=== PATIENT | female | born 1935 | race Caucasian/White ===

== ENCOUNTER 2018-08-23 01:00 | Inpatient (IN) ==
[2018-08-23] MEDS ORDERED: DILTIAZEM 50 MG/10 ML VIAL IV STA (01:25)
[2018-08-23] MEDS ORDERED: dilTIAZem Drip 125 MG/125 ML PREMIX IV SCH (01:30)
[2018-08-23] MEDS ORDERED: SODIUM CHLORIDE 0.9% 500 ML IV STA ×2 (01:30→01:50)
[2018-08-23 01:46] LABS: Basophils % 0.6 % (0.0-0.8); Eosinophils # 0.3 10*3/uL (0.0-0.87); Eosinophils % 3.5 % (0.00-10.9); Hematocrit 37.5 VOL% (35.7-47.0); Hemoglobin 12.1 GM/DL (12.0-16.0); Immature Granulocytes % 0.3 %; Immature Granulocytes Absolute 0.02 #; Lymphocytes # 1.9 10*3/uL (1.4-4.0); Lymphocytes % 26.2 % (21.3-54.2); Mean Corpuscular HGB Conc 32.3 GM/DL (32-36); Mean Corpuscular Volume 97.7 FL (87-102); Mean Platelet Volume 10.3 FL (9.6-12.0); Monocytes % 12.2 % (1.7-12.7); Neutrophils % 57.2 % (38.7-73.9); Platelet Count 260 T/CUMM (130-400); Red Blood Count 3.84 MC/CUMM (3.8-5.5); White Blood Count 7.2 T/CUMM (4-12)
[2018-08-23 01:56] LABS: INR 0.9; PT Patient Result 10.1 SECS; Partial Thromboplastin Time 24.3 SECS (0-40)
[2018-08-23 02:30] LABS: Albumin 3.8 G/DL (3.4-5.0); Bilirubin,Total 0.4 MG/DL (0.2-1.0); Osmolality,Calculated 284.4 MOS/KG (273-304); Thyroid Stimulating Hormone 5.69 uIU/ml (0.358-3.74); Total Protein 7.7 G/DL (6.4-8.3)
[2018-08-23] MEDS ORDERED: ACETAMINOPHEN 325 MG TABLET PO PRN (04:09)
[2018-08-23] MEDS ORDERED: ONDANSETRON 4 MG/2 ML VIAL IV PRN (04:09)
[2018-08-23] MEDS ORDERED: NITROGLYCERIN SL 0.4 MG TABLET SL PRN (04:14)
[2018-08-23] MEDS ORDERED: ENOXAPARIN 40 MG/0.4 ML SYRINGE SUBCUT SCH (04:30)
[2018-08-23] MEDS ORDERED: ENOXAPARIN 60 MG/0.6 ML SYRINGE SUBCUT ONE (04:32)
[2018-08-23] MEDS: SODIUM CHLORIDE 0.45% 1,000 ML IV SCH ×2 (05:43→20:07)
[2018-08-23] MEDS ORDERED: DILTIAZEM 50 MG/10 ML VIAL IV ONE (06:42)
[2018-08-23] MEDS ORDERED: dilTIAZem Drip 125 MG/125 ML PREMIX IV ONE (06:48)
[2018-08-23] MEDS: dilTIAZem Drip 125 MG/125 ML PREMIX IV SCH (06:56)
[2018-08-23] MEDS: PANTOPRAZOLE 40 MG TABLET PO SCH (09:51)
[2018-08-23] MEDS: METOPROLOL TARTRATE 25 MG TABLET PO SCH ×2 (09:51→20:08)
[2018-08-23] MEDS: CALCIUM (CARBONATE) 600 MG TABLET PO SCH (09:51)
[2018-08-23] MEDS: ASPIRIN EC 81 MG TABLET PO SCH (09:51)
[2018-08-23] MEDS: MULTIVITAMIN (CENTRUM) TABLET PO SCH (09:52)
[2018-08-23] MEDS: LISINOPRIL 20 MG TABLET PO SCH (09:52)
[2018-08-23] MEDS: FOLIC ACID 1 MG TABLET PO SCH (09:52)
[2018-08-23] MEDS: VENLAFAXINE XR 75 MG CAPSULE PO SCH (09:52)
[2018-08-23] MEDS: PRASUGREL 10 MG TABLET PO SCH (09:52)
[2018-08-23] MEDS: ATORVASTATIN 40 MG TABLET PO SCH (20:08)
[2018-08-24] MEDS: FOLIC ACID 1 MG TABLET PO SCH (08:45)
[2018-08-24] MEDS: VENLAFAXINE XR 75 MG CAPSULE PO SCH (08:45)
[2018-08-24] MEDS: MULTIVITAMIN (CENTRUM) TABLET PO SCH (08:45)
[2018-08-24] MEDS: PRASUGREL 10 MG TABLET PO SCH (08:45)
[2018-08-24] MEDS: CALCIUM (CARBONATE) 600 MG TABLET PO SCH (08:45)
[2018-08-24] MEDS: ASPIRIN EC 81 MG TABLET PO SCH (08:45)
[2018-08-24] MEDS: LISINOPRIL 20 MG TABLET PO SCH (08:45)
[2018-08-24] MEDS: PANTOPRAZOLE 40 MG TABLET PO SCH (08:45)
[2018-08-24] MEDS: METOPROLOL TARTRATE 25 MG TABLET PO SCH ×2 (08:46→20:37)
[2018-08-24] MEDS: SODIUM CHLORIDE 0.45% 1,000 ML IV SCH (08:50)
[2018-08-24] MEDS: APIXABAN 5 MG TABLET PO SCH (20:37)
[2018-08-24] MEDS: ATORVASTATIN 40 MG TABLET PO SCH (20:38)
[2018-08-25] MEDS: SODIUM CHLORIDE 0.45% 1,000 ML IV SCH (00:26)
[2018-08-25 05:20] LABS: Basophils % 0.5 % (0.0-0.8); Eosinophils # 0.2 10*3/uL (0.0-0.87); Hematocrit 34.7 VOL% (35.7-47.0); Hemoglobin 11.4 GM/DL (12.0-16.0); Immature Granulocytes % 0.8 %; Immature Granulocytes Absolute 0.05 #; Lymphocytes # 1.7 10*3/uL (1.4-4.0); Lymphocytes % 28.3 % (21.3-54.2); Mean Corpuscular HGB Conc 32.9 GM/DL (32-36); Mean Corpuscular Volume 99.1 FL (87-102); Mean Platelet Volume 10.5 FL (9.6-12.0); Monocytes % 10.4 % (1.7-12.7); Platelet Count 227 T/CUMM (130-400); Red Cell Distribution Width 12.9 % (9.3-17.3)
[2018-08-25 06:11] LABS: Calcium 8.7 MG/DL (8.5-10.1); Free T4 (Free Thyroxine) 0.75 NG/DL (0.76-1.46); Osmolality,Calculated 289.1 MOS/KG (273-304); Thyroid Stimulating Hormone 5.05 uIU/ml (0.358-3.74)
[2018-08-25] MEDS: dilTIAZem Drip 125 MG/125 ML PREMIX IV SCH ×2 (06:27→09:29)
[2018-08-25] MEDS ORDERED: LEVOTHYROXINE 25 MCG TABLET PO SCH (06:30)
[2018-08-25] MEDS: LISINOPRIL 20 MG TABLET PO SCH (08:40)
[2018-08-25] MEDS: MULTIVITAMIN (CENTRUM) TABLET PO SCH (08:41)
[2018-08-25] MEDS: FOLIC ACID 1 MG TABLET PO SCH (08:41)
[2018-08-25] MEDS: METOPROLOL TARTRATE 25 MG TABLET PO SCH (08:41)
[2018-08-25] MEDS: APIXABAN 5 MG TABLET PO SCH (08:41)
[2018-08-25] MEDS: ASPIRIN EC 81 MG TABLET PO SCH (08:41)
[2018-08-25] MEDS: PANTOPRAZOLE 40 MG TABLET PO SCH (08:41)
[2018-08-25] MEDS: VENLAFAXINE XR 75 MG CAPSULE PO SCH (08:41)
[2018-08-25] MEDS: CALCIUM (CARBONATE) 600 MG TABLET PO SCH (08:41)
[2018-08-25 12:06] VITALS: BP 144/62
== END 2018-08-25 12:01 | disposition home or self-care (01) | DRG 310 ==
LOC: N.ED 01:00 → N.EDINP 04:09 → N.TELES 05:05
PROVIDERS: ADMIT Internal Medicine; ATTEND Internal Medicine

== ENCOUNTER 2018-12-23 04:54 | Inpatient (IN) ==
[2018-12-23 05:39] LABS: Basophils % 0.5 % (0.0-0.8); Eosinophils # 0.3 10*3/uL (0.0-0.87); Eosinophils % 4.7 % (0.00-10.9); Hematocrit 37.3 VOL% (35.7-47.0); Hemoglobin 12.5 GM/DL (12.0-16.0); Immature Granulocytes % 0.3 %; Immature Granulocytes Absolute 0.02 #; Lymphocytes # 1.6 10*3/uL (1.4-4.0); Lymphocytes % 26.8 % (21.3-54.2); Mean Corpuscular HGB Conc 33.5 GM/DL (32-36); Mean Corpuscular Volume 96.9 FL (87-102); Monocytes % 8.6 % (1.7-12.7); Neutrophils % 59.1 % (38.7-73.9); Platelet Count 208 T/CUMM (130-400); Red Blood Count 3.85 MC/CUMM (3.8-5.5); Red Cell Distribution Width 12.9 % (9.3-17.3); White Blood Count 5.9 T/CUMM (4-12)
[2018-12-23 05:55] LABS: Albumin 3.4 G/DL (3.4-5.0); Bilirubin,Total 0.6 MG/DL (0.2-1.0); Calcium 8.9 MG/DL (8.5-10.1); Osmolality,Calculated 279.7 MOS/KG (273-304); Total Protein 6.7 G/DL (6.4-8.3)
[2018-12-23] MEDS ORDERED: BISACODYL 5 MG TABLET PO PRN (08:16)
[2018-12-23] MEDS ORDERED: ZALEPLON 5 MG CAPSULE PO PRN (08:16)
[2018-12-23] MEDS ORDERED: DOCUSATE SODIUM 100 MG CAPSULE PO PRN (08:16)
[2018-12-23] MEDS ORDERED: ONDANSETRON 4 MG/2 ML VIAL IV PRN (08:16)
[2018-12-23] MEDS ORDERED: ACETAMINOPHEN 325 MG TABLET PO PRN (08:16)
[2018-12-23] MEDS ORDERED: diphenhydrAMINE CAP 25 MG CAPSULE PO PRN (08:16)
[2018-12-23] MEDS ORDERED: ALUM/MAG/SIMETH/LIDO VISC 1:1 30 ML BOTTLE PO STA ×2 (08:29→11:11)
[2018-12-23] MEDS: SODIUM CHLORIDE 0.9% 1,000 ML IV SCH ×2 (08:35→21:42)
[2018-12-23 08:44] LABS: Apearance,Urine CLEAR (Clear); Bacteria,Urine Occasional /HPF (Few); Bilirubin,Urine Negative (Negative); Blood, Urine Small mg/dL (Negative); Glucose,Urine (UA) Negative (Negative); Ketones,Urine Negative (Negative); Nitrite,Urine Negative (Negative); Protein,Urine Negative; RBC,Urine 4 /HPF (0-4); Squamous Epithelial Cell,Urine Occasional /HPF (0-10); Urine Color Straw (Yellow); Urine Specific Gravity 1.005 (1.001-1.035); Urine Urobilinogen < 2.0 EU/DL (0.2-1.0); WBC,Urine 10 /HPF (0-6)
[2018-12-23] MEDS: PANTOPRAZOLE 40 MG TABLET PO SCH (09:03)
[2018-12-23 09:32] LABS: Thyroid Stimulating Hormone 2.35 uIU/ml (0.358-3.74)
[2018-12-23] MEDS ORDERED: NON-FORMULARY MEDICATION (Dexlansoprazole [Dexilant] 60 MG) PO SCH (11:11)
[2018-12-23] MEDS ORDERED: NITROGLYCERIN SL 0.4 MG TABLET SL PRN (11:11)
[2018-12-23] MEDS: POTASSIUM CHLORIDE 10 MEQ TABLET PO SCH (12:03)
[2018-12-23] MEDS: APIXABAN 5 MG TABLET PO SCH ×2 (12:03→21:38)
[2018-12-23] MEDS: MULTIVITAMIN (CENTRUM) TABLET PO SCH (12:03)
[2018-12-23] MEDS: CALCIUM (CARBONATE) 600 MG TABLET PO SCH (12:03)
[2018-12-23] MEDS: METOPROLOL TARTRATE 25 MG TABLET PO SCH ×2 (12:03→21:38)
[2018-12-23] MEDS: ASPIRIN EC 81 MG TABLET PO SCH (12:03)
[2018-12-23] MEDS: VENLAFAXINE 75 MG TABLET PO SCH (12:03)
[2018-12-23] MEDS: FOLIC ACID 1 MG TABLET PO SCH (12:03)
[2018-12-23 13:36] LABS: Troponin I 0.083 NG/ML (0.00-0.045)
[2018-12-23] MEDS: AMIODARONE 200 MG TABLET PO SCH ×2 (15:01→21:38)
[2018-12-23] MEDS: DOXYCYCLINE HYCLATE INJ 100 MG in SODIUM CHLORIDE 0.9% 100 ML IV SCH (17:31)
[2018-12-23] MEDS ORDERED: ATORVASTATIN 40 MG TABLET PO SCH (21:00)
[2018-12-23] MEDS: ASCORBIC ACID 500 MG TABLET PO SCH (21:37)
[2018-12-24 06:03] LABS: Basophils % 0.5 % (0.0-0.8); Eosinophils # 0.2 10*3/uL (0.0-0.87); Hematocrit 35.4 VOL% (35.7-47.0); Hemoglobin 11.9 GM/DL (12.0-16.0); Immature Granulocytes % 0.3 %; Immature Granulocytes Absolute 0.02 #; Lymphocytes # 1.6 10*3/uL (1.4-4.0); Lymphocytes % 23.9 % (21.3-54.2); Mean Corpuscular HGB Conc 33.6 GM/DL (32-36); Mean Corpuscular Volume 98.3 FL (87-102); Mean Platelet Volume 11.2 FL (9.6-12.0); Monocytes % 8.3 % (1.7-12.7); Platelet Count 178 T/CUMM (130-400); White Blood Count 6.6 T/CUMM (4-12)
[2018-12-24] MEDS: DOXYCYCLINE HYCLATE INJ 100 MG in SODIUM CHLORIDE 0.9% 100 ML IV SCH (06:26)
[2018-12-24] MEDS ORDERED: LEVOTHYROXINE 25 MCG TABLET PO SCH (06:30)
[2018-12-24 06:36] LABS: Albumin 3.2 G/DL (3.4-5.0); Bilirubin,Total 0.7 MG/DL (0.2-1.0); Calcium 8.9 MG/DL (8.5-10.1); Total Protein 6.3 G/DL (6.4-8.3)
[2018-12-24 06:50] LABS: Risk Ratio 1.93; VLDL CHOLESTEROL 8.6 MG/DL
[2018-12-24] MEDS ORDERED: METOPROLOL TARTRATE 25 MG TABLET PO SCH (07:35)
[2018-12-24] MEDS ORDERED: CYANOCOBALAMIN 500 MCG TABLET PO SCH (09:00)
[2018-12-24] MEDS ORDERED: PYRIDOXINE 100 MG TABLET PO SCH (09:00)
[2018-12-24] MEDS: VENLAFAXINE 75 MG TABLET PO SCH (09:25)
[2018-12-24] MEDS: FOLIC ACID 1 MG TABLET PO SCH (09:25)
[2018-12-24] MEDS: CALCIUM (CARBONATE) 600 MG TABLET PO SCH (09:25)
[2018-12-24] MEDS: APIXABAN 5 MG TABLET PO SCH (09:26)
[2018-12-24] MEDS: MULTIVITAMIN (CENTRUM) TABLET PO SCH (09:26)
[2018-12-24] MEDS: PANTOPRAZOLE 40 MG TABLET PO SCH (09:26)
[2018-12-24] MEDS: ASPIRIN EC 81 MG TABLET PO SCH (09:26)
[2018-12-24] MEDS: POTASSIUM CHLORIDE 10 MEQ TABLET PO SCH (09:26)
[2018-12-24] MEDS: ASCORBIC ACID 500 MG TABLET PO SCH (09:26)
[2018-12-24] MEDS: AMIODARONE 200 MG TABLET PO SCH (10:08)
[2018-12-24] MEDS: SODIUM CHLORIDE 0.9% 1,000 ML IV SCH (12:10)
[2018-12-24 12:23] VITALS: BP 157/68
[2018-12-24] MEDS ORDERED: VANCOMYCIN INJ 1,000 MG in SODIUM CHLORIDE 0.9% 250 ML IV ONE (15:12)
== END 2018-12-24 14:39 | disposition home or self-care (01) | DRG 309 ==
LOC: N.ED 04:54 → N.EDINP 08:16 → N.TELEN 10:31
PROVIDERS: ADMIT Internal Medicine; ATTEND Internal Medicine

== ENCOUNTER 2020-06-08 10:12 | Observation (INO) ==
[2020-06-08 10:46] LABS: Basophils % 0.3 % (0.0-0.8); Eosinophils # 0.1 10*3/uL (0.0-0.87); Eosinophils % 1.6 % (0.00-10.9); Hematocrit 35.9 VOL% (35.7-47.0); Hemoglobin 12.1 GM/DL (12.0-16.0); Immature Granulocytes % 0.3 %; Immature Granulocytes Absolute 0.02 #; Lymphocytes # 0.9 10*3/uL (1.4-4.0); Lymphocytes % 15.4 % (21.3-54.2); Mean Corpuscular HGB Conc 33.7 GM/DL (32-36); Mean Platelet Volume 9.6 FL (9.6-12.0); Monocytes % 10.7 % (1.7-12.7); Neutrophils % 71.7 % (38.7-73.9); Platelet Count 227 T/CUMM (130-400); Red Cell Distribution Width 12.2 % (9.3-17.3); White Blood Count 5.8 T/CUMM (4-12)
[2020-06-08] MEDS ORDERED: ASPIRIN 325 MG TABLET PO STA (11:05)
[2020-06-08] MEDS ORDERED: ENOXAPARIN 100 MG/ML SYRINGE SUBCUT STA (11:05)
[2020-06-08] MEDS ORDERED: NITROGLYCERIN 2% OINT 1 INCH/GM PACK TOP STA (11:05)
[2020-06-08 11:22] LABS: Albumin 3.5 G/DL (3.4-5.0); Bilirubin,Total 0.5 MG/DL (0.2-1.0); Calcium 9.1 MG/DL (8.5-10.1); Osmolality,Calculated 280.1 MOS/KG (273-304); Potassium 4.1 MMOL/L (3.5-5.1); Total Protein 6.8 G/DL (6.4-8.3)
[2020-06-08] MEDS ORDERED: ACETAMINOPHEN 325 MG TABLET PO PRN (12:20)
[2020-06-08] MEDS ORDERED: ONDANSETRON 4 MG/2 ML VIAL IV PRN (12:20)
[2020-06-08] MEDS ORDERED: NITROGLYCERIN SL 0.4 MG TABLET SL PRN (12:39)
[2020-06-08] MEDS ORDERED: LOSARTAN 25 MG TABLET PO ONE (12:48)
[2020-06-08 14:53] LABS: Bilirubin,Urine Negative (Negative); Blood, Urine Negative (Negative); Glucose,Urine (UA) Negative (Negative); Ketones,Urine Negative (Negative); Mucus,Urine Occasional /LPF (Occasional); Nitrite,Urine Negative (Negative); Protein,Urine Negative; RBC,Urine 4 /HPF (0-4); Squamous Epithelial Cell,Urine Occasional /HPF (0-10); Urine Appearance CLEAR (Clear); Urine Color Yellow (Yellow); Urine Specific Gravity 1.009 (1.001-1.035); Urine Urobilinogen < 2.0 EU/DL (0.2-1.0); WBC,Urine 1 /HPF (0-6)
[2020-06-08] MEDS ORDERED: ATORVASTATIN 40 MG TABLET PO SCH (21:00)
[2020-06-08] MEDS: AMIODARONE 200 MG TABLET PO SCH (23:40)
[2020-06-08] MEDS: APIXABAN 5 MG TABLET PO SCH (23:40)
[2020-06-08] MEDS: ASCORBIC ACID 500 MG TABLET PO SCH (23:42)
[2020-06-08] MEDS: METOPROLOL TARTRATE 25 MG TABLET PO SCH (23:42)
[2020-06-09] MEDS: METOPROLOL TARTRATE 25 MG TABLET PO SCH ×2 (00:20→08:51)
[2020-06-09] MEDS ORDERED: LEVOTHYROXINE 100 MCG TABLET PO SCH (06:30)
[2020-06-09] MEDS ORDERED: VENLAFAXINE XR 75 MG CAPSULE PO SCH (08:00)
[2020-06-09 08:29] VITALS: BP 142/47
[2020-06-09] MEDS: ASCORBIC ACID 500 MG TABLET PO SCH (08:49)
[2020-06-09] MEDS: APIXABAN 5 MG TABLET PO SCH (08:50)
[2020-06-09] MEDS: AMIODARONE 200 MG TABLET PO SCH (08:51)
[2020-06-09] MEDS ORDERED: MULTIVITAMIN (CENTRUM) TABLET PO SCH (09:00)
[2020-06-09] MEDS ORDERED: CYANOCOBALAMIN 500 MCG TABLET PO SCH (09:00)
[2020-06-09] MEDS ORDERED: ASPIRIN EC 81 MG TABLET PO SCH (09:00)
[2020-06-09] MEDS ORDERED: FOLIC ACID 1 MG TABLET PO SCH (09:00)
[2020-06-09] MEDS ORDERED: PYRIDOXINE 100 MG TABLET PO SCH (09:00)
[2020-06-09] MEDS ORDERED: CALCIUM (CARBONATE) 600 MG TABLET PO SCH (09:00)
[2020-06-09] MEDS ORDERED: POTASSIUM CHLORIDE 10 MEQ TABLET PO SCH (09:00)
[2020-06-09] MEDS ORDERED: CHLORTHALIDONE 25 MG TABLET PO SCH (09:00)
[2020-06-09] MEDS ORDERED: LOSARTAN 50 MG TABLET PO SCH (09:00)
[2020-06-09] MEDS ORDERED: ISOSORBIDE MONONITRATE 30 MG TABLET PO SCH (12:49)
== END 2020-06-09 10:48 | disposition home or self-care (01) ==
LOC: N.EDINP 10:12 → N.ED 10:12 → N.TELES 16:55
PROVIDERS: ADMIT Internal Medicine Cardiovascular Disease; ATTEND Internal Medicine Cardiovascular Disease

== ENCOUNTER 2021-12-19 20:31 | Observation (INO) ==
[2021-12-19 20:59] LABS: Basophils % 0.4 % (0.0-0.8); Eosinophils # 0.1 10*3/uL (0.0-0.87); Hematocrit 36.9 VOL% (35.7-47.0); Hemoglobin 12.4 GM/DL (12.0-16.0); Immature Granulocytes % 0.4 %; Immature Granulocytes Absolute 0.03 #; Lymphocytes # 1.7 10*3/uL (1.4-4.0); Lymphocytes % 21.9 % (21.3-54.2); Mean Corpuscular HGB Conc 33.6 GM/DL (32-36); Mean Corpuscular Volume 99.2 FL (87-102); Mean Platelet Volume 9.3 FL (9.6-12.0); Monocytes # 0.9 10*3/uL (0.11-0.8); Monocytes % 11.8 % (1.7-12.7); Neutrophils % 64.5 % (38.7-73.9); Platelet Count 269 T/CUMM (130-400); Red Blood Count 3.72 MC/CUMM (3.8-5.5); Red Cell Distribution Width 11.9 % (9.3-17.3); White Blood Count 7.6 T/CUMM (4-12)
[2021-12-19 21:35] LABS: Bilirubin,Total 0.6 MG/DL (0.20-1.00)
[2021-12-19 21:36] LABS: Albumin 3.4 G/DL (3.4-5.0); Osmolality,Calculated 273.2 MOS/KG (273-304); Potassium 3.8 MMOL/L (3.5-5.1)
[2021-12-20] MEDS ORDERED: GLUCAGON 1 MG VIAL IM PRN (01:39)
[2021-12-20] MEDS ORDERED: ACETAMINOPHEN 325 MG TABLET PO PRN (01:39)
[2021-12-20] MEDS ORDERED: MORPHINE 2 MG/1 ML SYRINGE IV PRN (01:39)
[2021-12-20] MEDS ORDERED: ONDANSETRON 4 MG/2 ML VIAL IV PRN (01:39)
[2021-12-20] MEDS ORDERED: NITROGLYCERIN SL 0.4 MG TABLET SL PRN (01:39)
[2021-12-20] MEDS ORDERED: DEXTROSE 10% 250 ML BAG IV PRN (01:50)
[2021-12-20] MEDS ORDERED: SODIUM CHLORIDE 0.9% 1,000 ML IV SCH (02:30)
[2021-12-20 05:52] LABS: Risk Ratio 2.87; Thyroid Stimulating Hormone 0.007 uIU/ml (0.358-3.74); VLDL Cholesterol 14.8 MG/DL
[2021-12-20] MEDS ORDERED: LEVOTHYROXINE 75 MCG TABLET PO SCH (06:00)
[2021-12-20 07:55] LABS: Calcium 9.2 MG/DL (8.5-10.1); Osmolality,Calculated 284.3 MOS/KG (273-304); Potassium 3.9 MMOL/L (3.5-5.1)
[2021-12-20] MEDS ORDERED: VENLAFAXINE XR 75 MG CAPSULE PO SCH (08:00)
[2021-12-20 08:01] LABS: Basophils % 0.6 % (0.0-0.8); Eosinophils # 0.1 10*3/uL (0.0-0.87); Eosinophils % 1.5 % (0.00-10.9); Hematocrit 38.5 VOL% (35.7-47.0); Hemoglobin 12.9 GM/DL (12.0-16.0); Immature Granulocytes % 0.4 %; Immature Granulocytes Absolute 0.02 #; Lymphocytes # 1.1 10*3/uL (1.4-4.0); Lymphocytes % 21.3 % (21.3-54.2); Mean Corpuscular HGB Conc 33.5 GM/DL (32-36); Mean Platelet Volume 9.3 FL (9.6-12.0); Monocytes # 0.7 10*3/uL (0.11-0.8); Monocytes % 12.7 % (1.7-12.7); Neutrophils % 63.5 % (38.7-73.9); Platelet Count 254 T/CUMM (130-400); Red Blood Count 3.85 MC/CUMM (3.8-5.5); Red Cell Distribution Width 11.9 % (9.3-17.3); White Blood Count 5.3 T/CUMM (4-12)
[2021-12-20 08:30] LABS: Free T4 (Free Thyroxine) 0.81 NG/DL (0.76-1.46)
[2021-12-20] MEDS ORDERED: FOLIC ACID 1 MG TABLET PO SCH (09:00)
[2021-12-20] MEDS ORDERED: METOPROLOL TARTRATE 25 MG TABLET PO SCH (09:00)
[2021-12-20] MEDS ORDERED: PANTOPRAZOLE 40 MG TABLET PO SCH (09:00)
[2021-12-20] MEDS ORDERED: LOSARTAN 25 MG TABLET PO SCH (09:00)
[2021-12-20] MEDS ORDERED: CALCIUM (CARBONATE) 600 MG TABLET PO SCH (09:00)
[2021-12-20] MEDS ORDERED: LIOTHYRONINE 25 MCG TABLET PO SCH (09:00)
[2021-12-20] MEDS ORDERED: APIXABAN 2.5 MG TABLET PO SCH (09:00)
[2021-12-20] MEDS ORDERED: ASPIRIN EC 81 MG TABLET PO SCH (09:00)
[2021-12-20] MEDS ORDERED: ISOSORBIDE MONONITRATE 30 MG TABLET PO SCH (09:00)
[2021-12-20] MEDS ORDERED: amLODIPine 5 MG TABLET PO SCH (09:00)
[2021-12-20] MEDS ORDERED: MULTIVITAMIN (CENTRUM) TABLET PO SCH (09:00)
[2021-12-20] MEDS ORDERED: ASCORBIC ACID 500 MG TABLET PO SCH (09:00)
[2021-12-20] MEDS ORDERED: AMIODARONE 200 MG TABLET PO SCH ×2 (09:00)
[2021-12-20] MEDS ORDERED: APIXABAN 5 MG TABLET PO SCH (09:00)
[2021-12-20] MEDS ORDERED: POTASSIUM CHLORIDE 10 MEQ TABLET PO SCH (09:00)
[2021-12-20] MEDS ORDERED: CHLORTHALIDONE 25 MG TABLET PO SCH (09:00)
[2021-12-20] MEDS ORDERED: ISOSORBIDE MONONITRATE 60 MG TABLET PO SCH (09:00)
[2021-12-20 12:13] VITALS: BP 136/57
[2021-12-20] MEDS ORDERED: ATORVASTATIN 40 MG TABLET PO SCH (21:00)
== END 2021-12-20 12:28 | disposition home or self-care (01) ==
LOC: N.EDINP 20:31 → N.ED 20:31 → N.EDINP 12-20 13:03
PROVIDERS: ADMIT Internal Medicine; ATTEND Internal Medicine